=== PATIENT | female | born 1970 | race Caucasian/White ===

== ENCOUNTER 2017-02-10 02:42 | Inpatient (IN) | payer OTHER ==
[~2017-02-10] VITALS: Ht 160 cm; Wt 73.3 kg
[2017-02-10] VITALS (12 sets, daily range): BP systolic 113–163; BP diastolic 68–98
[~2017-02-10 02:42] MED LIST: ALPRAZOLAM2 MG PO; AMITRIPTYLINE H50 MG PO; AMITRIPTYLINE10 MG PO; AMITRIPTYLINE50 MG PO; AMOXICILLIN500 M2 PO; AMOXICILLIN500 MG PO; ATIVAN1 MG PO; AUGMENTIN 875 M1 TAB PO; BACTRIM DS 8001 TA1 PO; BACTRIM DS 8001 TAB PO; BACTROBAN OINT22 GM PO; BENADRYL50 MG PO; BENTYL10 MG PO; Bactrim Ds 8001 TAB PO; CIPRO250 MG PO; CIPRO500 MG PO; CIPROFLOXACIN500 MG PO; CLINDAMYCIN HC300 MG PO; CLINDAMYCIN150 MG PO; DESYREL100 MG PO; DOXEPIN25 MG PO; EFFEXOR XR37.5 MG PO; ELAVIL10 MG PO; ELMIRON100 MG PO; EMERON; EMIRON PO; FIORICET 325 MG1 TAB PO; GEODON60 MG PO; HYDROCODONE BIT1 T11 PO; LEVOFLOXACIN500 MG PO; LORCET 10/650 61 TA1 PO; LORTAB 10/500 51 TAB PO; LORTAB 500 MG-71 TAB PO; MACROBID100 M1 PO; MACRODANTIN100 MG PO; MAG PO; MOTRIN800 MG PO; NICODERM21 MG/24 H TD; NORCO 325 MG-101 TAB PO; NORCO 325 MG-51 TAB PO; PENICILLIN-VK500 MG PO; PERCOCET 325 MG1 TA2 PO; PERCOCET 325 MG1 TA3 PO; PERCOCET 325 MG1 TA5 PO; PERCOCET 325 MG1 TA6 PO; PERCOCET 325 MG1 TA7 PO; PERCOCET PO; PHENERGAN25 M1 PO; PHENERGAN25 MG RC; PREDNICOT20 MG PO; PREDNISONE20 M1 PO; PRILOSEC20 MG PO; PROTONIX40 MG PO; PYRIDIUM200 M1 PO; PYRIDIUM200 MG PO; Peridex 473 ML473 ML PO; ROBAXIN750 MG PO; SEROQUEL300 MG PO; TOPICAINE4% T; TRAMADOL HCL50 MG PO; TRAZADONE HYDR100 MG PO; VALIUM10 MG; VALIUM10 MG PO; VALIUM5 MG PO; VICODIN 5/500 505 MG PO; VICODIN 500 MG-1 TAB PO; VICODIN HP 6601 TAB PO; VICODIN PO; VOLTAREN50 M1 PO; WELLBUTRIN XL150 MG PO; XANAX XR2 MG PO; XANAX2 MG PO; ZIPRASIDONE HCL80 M1 PO; ZOFRAN ODT4 MG SL; ZOFRAN4 MG PO; ZYRTEC-D 5 MG-11 TE1 PO; ZYRTEC10 MG PO
[2017-02-10 03:16] LABS: BASO % 0.4 % (0.0-1.0); EOS # 0.2 10*3/uL (0.0-0.4); HEMATOCRIT 40.1 % (37.0-47.0); HEMOGLOBIN 13.3 g/dl (12.0-16.0); LYMPH # 3.1 10*3/uL (1.3-4.4); LYMPH % 37.9 % (27.0-41.0); MEAN CELL VOLUME 101.8 fl (81.0-99.0); MEAN CORPUSCULAR HGB 33.8 pg (27.0-31.0); MEAN CORPUSCULAR HGB CONC 33.2 g/dl (33.0-37.0); MONO # 0.5 10*3/uL (0.1-1.0); MONO % 5.6 % (3.0-9.0); NEUT # 4.3 10*3/uL (2.3-7.9); NEUT % 52.6 % (47.0-73.0); PLATELET COUNT AUTOMATED 520 10*3/uL (130-400); RED BLOOD COUNT 3.94 10*6/uL (4.10-5.10); RED CELL DISTRI WIDTH 14.4 % (0-14.5); WHITE BLOOD COUNT 8.1 10*3/uL (4.8-10.8)
[2017-02-10 03:29] LABS: C-REACTIVE PROTEIN 2.29 MG/DL (0-0.3)
[2017-02-10 03:34] LABS: ALBUMIN 3.3 gm/dl (3.1-4.5); ALKALINE PHOSPHATASE 134 U/L (45-117); BILIRUBIN, TOTAL 0.3 mg/dl (0.2-1.0); BUN 45 mg/dl (7-24); CARBON DIOXIDE 19 mmol/L (21-32); CHLORIDE 106 mmol/L (98-107); EST GLOM FILT AFRICAN AMERICAN 34 ml/min; GLUCOSE 111 mg/dL (65-99); MAGNESIUM 2.2 mg/dL (1.5-2.1); SGOT/AST 17 IU/L (3-35); SGPT/ALT 26 U/L (12-78); SODIUM 140 mmol/L (136-145); TOTAL PROTEIN 8.7 gm/dL (6.4-8.2)
[2017-02-10 03:35] LABS: TROPONIN I < 0.015 ng/ml (<0.045)
[2017-02-10 03:40] LABS: INTERNATIONAL NORM RATIO 1.1 (2.0-3.5); PROTHROMBIN TIME 11.4 SECONDS (9.0-12.4)
[2017-02-10 06:21] LABS: ALBUMIN 3.1 gm/dl (3.1-4.5); BILIRUBIN, TOTAL 0.5 mg/dl (0.2-1.0); FREE T4 1.25 ng/dl (0.76-1.46); PHOSPHOROUS 5.1 mg/dL (2.5-4.9); POTASSIUM 3.9 mmol/L (3.5-5.1); TOTAL PROTEIN 8.1 gm/dL (6.4-8.2)
[2017-02-10 06:26] LABS: THYROID STIM HORMONE (HS) 3.11 uIU/ml (0.358-4.75)
[2017-02-10 07:05] LABS: HEMOGLOBIN A1c 5.5 % (4.8-5.6)
[2017-02-10 07:43] LABS: VITAMIN D, 25-HYDROXY 12.2 ng/mL (30-100)
[2017-02-10 07:44] LABS: FOLIC ACID 8.67 ng/mL (>5.38)
[2017-02-10 18:38] LABS: BILIRUBIN NEGATIVE (NEGATIVE); BLOOD NEGATIVE (NEGATIVE); CLARITY SL CLOUDY (CLEAR); COLOR YELLOW (YELLOW); GLUCOSE NEGATIVE (NEGATIVE); KETONE NEGATIVE (NEGATIVE); LEUKO ESTERASE NEGATIVE (NEGATIVE); NITRITE NEGATIVE (NEGATIVE); PROTEIN NEGATIVE (NEGATIVE)
[2017-02-10 18:44] LABS: BACTERIA 4+; RBC 0-2 rbc/hpf (0-2); URINE REFLEX COMMENT YES (NO); WBC 0-2 wbc/hpf (0-5)
[2017-02-10 18:47] LABS: URINE AMPHETAMINES < 1000 (1000ng/ml); URINE BARBITURATES < 200 (200ng/ml); URINE COCAINE < 300 (300ng/ml)
== END 2017-02-10 20:16 | disposition left against medical advice (07) | DRG 682 ==
LOC: ED 02:42 → EDHOLD 04:18 → 5E 04:27
PROVIDERS: Emergency Medicine Emergency Medical Services; Hospitalist; Internal Medicine
DX: N17.0 Acute kidney failure with tubular necrosis (principal); J18.9 Pneumonia, unspecified organism; E44.0 Moderate protein-calorie malnutrition; E87.2 Acidosis; F33.9 Major depressive disorder, recurrent, unspecified; F17.210 Nicotine dependence, cigarettes, uncomplicated; R07.89 Other chest pain; K21.9 Gastro-esophageal reflux disease without esophagitis; F41.1 Generalized anxiety disorder; Z53.21 Procedure and treatment not carried out due to patient leaving prior to being seen by health care provider; K27.9 Peptic ulcer, site unspecified, unspecified as acute or chronic, without hemorrhage or perforation; G89.4 Chronic pain syndrome; N30.11 Interstitial cystitis (chronic) with hematuria; E55.9 Vitamin D deficiency, unspecified; Z90.49 Acquired absence of other specified parts of digestive tract; Z90.710 Acquired absence of both cervix and uterus; Z90.5 Acquired absence of kidney; Z82.49 Family history of ischemic heart disease and other diseases of the circulatory system; Z88.6 Allergy status to analgesic agent; Z88.8 Allergy status to other drugs, medicaments and biological substances; Z91.041 Radiographic dye allergy status; Z79.899 Other long term (current) drug therapy; Z68.28 Body mass index [BMI] 28.0-28.9, adult

== ENCOUNTER 2017-02-17 16:16 | Emergency (ER) | payer OTHER ==
[~2017-02-17] VITALS: Ht 160 cm; Wt 69.9 kg
[2017-02-17 16:26] VITALS: BP 130/90
[2017-02-17 17:01] LABS: BASO % 0.4 % (0.0-1.0); EOS # 0.2 10*3/uL (0.0-0.4); EOS % 3.2 % (1.0-4.0); HEMATOCRIT 38.4 % (37.0-47.0); HEMOGLOBIN 12.9 g/dl (12.0-16.0); LYMPH % 43.6 % (27.0-41.0); MEAN CELL VOLUME 101.6 fl (81.0-99.0); MEAN CORPUSCULAR HGB 34.1 pg (27.0-31.0); MEAN CORPUSCULAR HGB CONC 33.6 g/dl (33.0-37.0); MEAN PLATELET VOLUME 11.2 fl (9.6-12.3); MONO # 0.4 10*3/uL (0.1-1.0); MONO % 5.7 % (3.0-9.0); NEUT # 3.3 10*3/uL (2.3-7.9); NEUT % 46.8 % (47.0-73.0); PLATELET COUNT AUTOMATED 368 10*3/uL (130-400); RED BLOOD COUNT 3.78 10*6/uL (4.10-5.10); RED CELL DISTRI WIDTH 14.4 % (0-14.5)
[2017-02-17 17:15] LABS: ALBUMIN 3.5 gm/dl (3.1-4.5); BILIRUBIN, TOTAL 0.3 mg/dl (0.2-1.0); MAGNESIUM 1.8 mg/dL (1.5-2.1); POTASSIUM 4.2 mmol/L (3.5-5.1); TOTAL PROTEIN 7.9 gm/dL (6.4-8.2)
[2017-02-17 17:57] LABS: BILIRUBIN 1+ (NEGATIVE); BLOOD NEGATIVE (NEGATIVE); CLARITY SL CLOUDY (CLEAR); COLOR YELLOW (YELLOW); GLUCOSE NEGATIVE (NEGATIVE); KETONE NEGATIVE (NEGATIVE); LEUKO ESTERASE NEGATIVE (NEGATIVE); NITRITE NEGATIVE (NEGATIVE); PH 5.5 (5.0-9.0); PROTEIN TRACE (NEGATIVE); SPECIFIC GRAVITY >= 1.030 (1.005-1.030)
[2017-02-17 18:01] LABS: BACTERIA 4+; EPITHELIAL CELLS TNTC; RBC 0-2 rbc/hpf (0-2); URINE REFLEX COMMENT YES (NO)
== END 2017-02-17 18:23 | disposition home or self-care (01) ==
LOC: ED 16:16
PROVIDERS: Nurse Practitioner Family
DX: G89.29 Other chronic pain (principal); R10.30 Lower abdominal pain, unspecified; R03.0 Elevated blood-pressure reading, without diagnosis of hypertension; R11.2 Nausea with vomiting, unspecified; F17.200 Nicotine dependence, unspecified, uncomplicated; Z88.6 Allergy status to analgesic agent; Z91.041 Radiographic dye allergy status; Z88.8 Allergy status to other drugs, medicaments and biological substances; Z87.11 Personal history of peptic ulcer disease

== ENCOUNTER 2017-03-10 19:17 | Emergency (ER) | payer OTHER ==
[~2017-03-10] VITALS: Wt 55.8 kg
[2017-03-10 19:39] LABS: BASO % 0.4 % (0.0-1.0); EOS # 0.2 10*3/uL (0.0-0.4); EOS % 1.6 % (1.0-4.0); HEMATOCRIT 39.9 % (37.0-47.0); HEMOGLOBIN 13.6 g/dl (12.0-16.0); LYMPH # 2.6 10*3/uL (1.3-4.4); LYMPH % 25.3 % (27.0-41.0); MEAN CELL VOLUME 98.8 fl (81.0-99.0); MEAN CORPUSCULAR HGB 33.7 pg (27.0-31.0); MEAN CORPUSCULAR HGB CONC 34.1 g/dl (33.0-37.0); MEAN PLATELET VOLUME 11.5 fl (9.6-12.3); MONO # 0.7 10*3/uL (0.1-1.0); MONO % 6.9 % (3.0-9.0); NEUT # 6.8 10*3/uL (2.3-7.9); NEUT % 65.5 % (47.0-73.0); PLATELET COUNT AUTOMATED 341 10*3/uL (130-400); RED BLOOD COUNT 4.04 10*6/uL (4.10-5.10); WHITE BLOOD COUNT 10.3 10*3/uL (4.8-10.8)
[2017-03-10 19:52] LABS: C-REACTIVE PROTEIN 0.58 MG/DL (0-0.3); POTASSIUM 4.9 mmol/L (3.5-5.1)
[2017-03-10 19:54] VITALS: BP 146/96
[2017-03-10] MEDS ORDERED: ZOFRAN ODT4 MG SL (21:56)
[2017-03-10] MEDS ORDERED: PERCOCET 325 MG1 TA2 PO (21:56)
== END 2017-03-10 22:46 | disposition home or self-care (01) ==
LOC: ED 19:17
PROVIDERS: Emergency Medicine Emergency Medical Services
DX: N30.10 Interstitial cystitis (chronic) without hematuria (principal); R10.2 Pelvic and perineal pain; R11.10 Vomiting, unspecified; F17.210 Nicotine dependence, cigarettes, uncomplicated; Z90.49 Acquired absence of other specified parts of digestive tract; Z88.5 Allergy status to narcotic agent; Z88.6 Allergy status to analgesic agent; Z88.8 Allergy status to other drugs, medicaments and biological substances; Z91.041 Radiographic dye allergy status

== ENCOUNTER 2017-03-14 18:28 | Inpatient (IN) | payer OTHER ==
[~2017-03-14] VITALS: Ht 160 cm; Wt 73.7 kg
[2017-03-14 18:30] VITALS: BP 118/85
[2017-03-14 19:08] LABS: BILIRUBIN 1+ (NEGATIVE); BLOOD 1+ (NEGATIVE); CLARITY SL CLOUDY (CLEAR); COLOR YELLOW (YELLOW); GLUCOSE NEGATIVE (NEGATIVE); KETONE 3+ (NEGATIVE); LEUKO ESTERASE NEGATIVE (NEGATIVE); NITRITE POSITIVE (NEGATIVE); PROTEIN 2+ (NEGATIVE); SPECIFIC GRAVITY >= 1.030 (1.005-1.030)
[2017-03-14 19:25] LABS: BACTERIA 2+; EPITHELIAL CELLS TNTC; URINE REFLEX COMMENT YES (NO)
[2017-03-14 19:43] LABS: BASO % 0.2 % (0.0-1.0); EOS # 0.3 10*3/uL (0.0-0.4); EOS % 2.3 % (1.0-4.0); HEMOGLOBIN 13.9 g/dl (12.0-16.0); LYMPH # 2.7 10*3/uL (1.3-4.4); LYMPH % 22.2 % (27.0-41.0); MEAN CELL VOLUME 99.3 fl (81.0-99.0); MEAN CORPUSCULAR HGB 33.7 pg (27.0-31.0); MEAN CORPUSCULAR HGB CONC 33.9 g/dl (33.0-37.0); MEAN PLATELET VOLUME 11.3 fl (9.6-12.3); MONO # 0.6 10*3/uL (0.1-1.0); MONO % 5.2 % (3.0-9.0); NEUT # 8.5 10*3/uL (2.3-7.9); NEUT % 69.9 % (47.0-73.0); PLATELET COUNT AUTOMATED 298 10*3/uL (130-400); RED BLOOD COUNT 4.13 10*6/uL (4.10-5.10); RED CELL DISTRI WIDTH 14.5 % (0-14.5); WHITE BLOOD COUNT 12.1 10*3/uL (4.8-10.8)
[2017-03-14 20:00] LABS: ALBUMIN 4.1 gm/dl (3.1-4.5); BILIRUBIN, TOTAL 0.5 mg/dl (0.2-1.0); C-REACTIVE PROTEIN 0.81 MG/DL (0-0.3); MAGNESIUM 1.8 mg/dL (1.5-2.1); POTASSIUM 3.8 mmol/L (3.5-5.1); TOTAL PROTEIN 8.6 gm/dL (6.4-8.2)
[2017-03-14 21:15] VITALS: BP 128/94
[2017-03-14 23:18] VITALS: BP 118/78
[2017-03-15] VITALS: BP 118/78
[2017-03-15 04:00] VITALS: BP 144/68
[2017-03-15 04:42] LABS: BASO % 0.3 % (0.0-1.0); EOS # 0.3 10*3/uL (0.0-0.4); EOS % 4.4 % (1.0-4.0); HEMATOCRIT 36.5 % (37.0-47.0); MEAN CELL VOLUME 101.1 fl (81.0-99.0); MEAN CORPUSCULAR HGB 33.2 pg (27.0-31.0); MEAN CORPUSCULAR HGB CONC 32.9 g/dl (33.0-37.0); MEAN PLATELET VOLUME 11.2 fl (9.6-12.3); MONO # 0.7 10*3/uL (0.1-1.0); MONO % 8.6 % (3.0-9.0); NEUT # 3.7 10*3/uL (2.3-7.9); NEUT % 47.4 % (47.0-73.0); PLATELET COUNT AUTOMATED 246 10*3/uL (130-400); RED BLOOD COUNT 3.61 10*6/uL (4.10-5.10); RED CELL DISTRI WIDTH 14.4 % (0-14.5); WHITE BLOOD COUNT 7.8 10*3/uL (4.8-10.8)
[2017-03-15 04:55] LABS: PROTHROMBIN TIME 10.4 SECONDS (9.0-12.4)
[2017-03-15 04:59] LABS: ALBUMIN 3.4 gm/dl (3.1-4.5); ALKALINE PHOSPHATASE 127 U/L (45-117); BILIRUBIN, TOTAL 0.3 mg/dl (0.2-1.0); BUN 23 mg/dl (7-24); CARBON DIOXIDE 23 mmol/L (21-32); CHLORIDE 105 mmol/L (98-107); EST GLOM FILT AFRICAN AMERICAN > 60 ml/min; GLUCOSE 111 mg/dL (65-99); MAGNESIUM 1.7 mg/dL (1.5-2.1); POTASSIUM 3.7 mmol/L (3.5-5.1); SGOT/AST 31 IU/L (3-35); SGPT/ALT 54 U/L (12-78); SODIUM 138 mmol/L (136-145)
[2017-03-15 08:00] VITALS: BP 110/65
[2017-03-15 09:01] LABS: BILIRUBIN NEGATIVE (NEGATIVE); BLOOD TRACE-INTACT (NEGATIVE); CLARITY SL CLOUDY (CLEAR); COLOR YELLOW (YELLOW); GLUCOSE NEGATIVE (NEGATIVE); KETONE 2+ (NEGATIVE); LEUKO ESTERASE 1+ (NEGATIVE); NITRITE POSITIVE (NEGATIVE); PROTEIN 1+ (NEGATIVE); SPECIFIC GRAVITY 1.025 (1.005-1.030); UROBILINOGEN 0.2 E.U./dl (0.2-1.0)
[2017-03-15 09:17] LABS: BACTERIA TRACE; EPITHELIAL CELLS 16-20; MUCOUS 2+; URINE REFLEX COMMENT YES (NO); WBC 21-30 wbc/hpf (0-5)
[2017-03-15] MEDS ORDERED: D-1000 185 MG-11 TAB PO (09:56)
[2017-03-15 12:00] VITALS: BP 98/64
[2017-03-15] MEDS ORDERED: CIPRO500 MG PO (12:02)
[2017-03-15 16:00] VITALS: BP 147/90
[2017-03-15 20:00] VITALS: BP 117/76
[2017-03-16] VITALS: BP 144/68
[2017-03-16 08:00] VITALS: BP 96/56
[2017-03-16 09:16] VITALS: BP 110/70
[2017-03-16 12:00] VITALS: BP 132/88
[2017-03-16 16:00] VITALS: BP 152/87
[2017-03-16 20:00] VITALS: BP 169/90
[2017-03-17] VITALS: BP 160/90
[2017-03-17 08:00] VITALS: BP 145/69
[2017-03-17 12:00] VITALS: BP 114/75
[2017-03-17 16:00] VITALS: BP 132/97
[2017-03-17 20:00] VITALS: BP 152/91
[2017-03-18] VITALS: BP 139/90
[2017-03-18 07:04] LABS: BASO % 0.4 % (0.0-1.0); EOS # 0.5 10*3/uL (0.0-0.4); HEMATOCRIT 33.1 % (37.0-47.0); HEMOGLOBIN 10.7 g/dl (12.0-16.0); LYMPH # 2.7 10*3/uL (1.3-4.4); LYMPH % 39.9 % (27.0-41.0); MEAN CELL VOLUME 102.2 fl (81.0-99.0); MEAN CORPUSCULAR HGB CONC 32.3 g/dl (33.0-37.0); MEAN PLATELET VOLUME 12.2 fl (9.6-12.3); MONO # 0.5 10*3/uL (0.1-1.0); MONO % 6.9 % (3.0-9.0); NEUT # 3.1 10*3/uL (2.3-7.9); NEUT % 45.7 % (47.0-73.0); PLATELET COUNT AUTOMATED 203 10*3/uL (130-400); RED BLOOD COUNT 3.24 10*6/uL (4.10-5.10); RED CELL DISTRI WIDTH 14.2 % (0-14.5); WHITE BLOOD COUNT 6.7 10*3/uL (4.8-10.8)
[2017-03-18 07:20] LABS: ALBUMIN 2.9 gm/dl (3.1-4.5); ALKALINE PHOSPHATASE 95 U/L (45-117); BILIRUBIN, TOTAL 0.1 mg/dl (0.2-1.0); BUN 14 mg/dl (7-24); CARBON DIOXIDE 27 mmol/L (21-32); CHLORIDE 107 mmol/L (98-107); EST GLOM FILT AFRICAN AMERICAN > 60 ml/min; GLUCOSE 94 mg/dL (65-99); POTASSIUM 3.8 mmol/L (3.5-5.1); SGOT/AST 16 IU/L (3-35); SGPT/ALT 31 U/L (12-78); SODIUM 142 mmol/L (136-145); TOTAL PROTEIN 6.2 gm/dL (6.4-8.2)
[2017-03-18 08:00] VITALS: BP 146/90
[2017-03-18 12:00] VITALS: BP 108/58
[2017-03-18 16:00] VITALS: BP 150/82
[2017-03-18 20:00] VITALS: BP 150/95
[2017-03-19] VITALS: BP 155/88
[2017-03-19 06:13] LABS: BASO % 0.4 % (0.0-1.0); EOS # 0.4 10*3/uL (0.0-0.4); EOS % 6.4 % (1.0-4.0); HEMATOCRIT 28.7 % (37.0-47.0); HEMOGLOBIN 9.1 g/dl (12.0-16.0); LYMPH # 2.4 10*3/uL (1.3-4.4); LYMPH % 42.7 % (27.0-41.0); MEAN CELL VOLUME 103.2 fl (81.0-99.0); MEAN CORPUSCULAR HGB 32.7 pg (27.0-31.0); MEAN CORPUSCULAR HGB CONC 31.7 g/dl (33.0-37.0); MEAN PLATELET VOLUME 12.1 fl (9.6-12.3); MONO # 0.4 10*3/uL (0.1-1.0); MONO % 6.6 % (3.0-9.0); NEUT # 2.5 10*3/uL (2.3-7.9); NEUT % 43.7 % (47.0-73.0); PLATELET COUNT AUTOMATED 171 10*3/uL (130-400); RED BLOOD COUNT 2.78 10*6/uL (4.10-5.10); RED CELL DISTRI WIDTH 14.3 % (0-14.5); WHITE BLOOD COUNT 5.6 10*3/uL (4.8-10.8)
[2017-03-19 06:30] LABS: BUN 19 mg/dl (7-24); CARBON DIOXIDE 23 mmol/L (21-32); CHLORIDE 115 mmol/L (98-107); EST GLOM FILT AFRICAN AMERICAN > 60 ml/min; GLUCOSE 79 mg/dL (65-99); POTASSIUM 3.1 mmol/L (3.5-5.1); SODIUM 145 mmol/L (136-145)
[2017-03-19 08:00] VITALS: BP 154/89
[2017-03-19] MEDS ORDERED: PERCOCET 325 MG1 TA7 PO (11:50)
== END 2017-03-19 12:09 | disposition home or self-care (01) | DRG 871 ==
LOC: ED 18:28 → 4E 21:35 → EDHOLD 21:35 → 4E 22:43
PROVIDERS: Emergency Medicine; Family Medicine; Family Medicine Adult Medicine; Hospitalist
DX: A41.9 Sepsis, unspecified organism (principal); N17.0 Acute kidney failure with tubular necrosis; E87.1 Hypo-osmolality and hyponatremia; R65.20 Severe sepsis without septic shock; E86.0 Dehydration; F19.10 Other psychoactive substance abuse, uncomplicated; F17.210 Nicotine dependence, cigarettes, uncomplicated; R74.0 Nonspecific elevation of levels of transaminase and lactic acid dehydrogenase [LDH]; N30.11 Interstitial cystitis (chronic) with hematuria; F32.9 Major depressive disorder, single episode, unspecified; F41.1 Generalized anxiety disorder; B96.20 Unspecified Escherichia coli [E. coli] as the cause of diseases classified elsewhere; E55.9 Vitamin D deficiency, unspecified; G89.29 Other chronic pain; K27.9 Peptic ulcer, site unspecified, unspecified as acute or chronic, without hemorrhage or perforation; R70.0 Elevated erythrocyte sedimentation rate; Z79.899 Other long term (current) drug therapy; Z71.6 Tobacco abuse counseling; Z90.49 Acquired absence of other specified parts of digestive tract; Z88.6 Allergy status to analgesic agent; Z91.041 Radiographic dye allergy status; Z82.49 Family history of ischemic heart disease and other diseases of the circulatory system

== ENCOUNTER 2017-03-25 12:31 | Emergency (ER) | payer OTHER ==
[~2017-03-25] VITALS: Ht 1 cm; Wt 73.0 kg
[~2017-03-25 12:31] MED LIST changes: +D-1000 185 MG-11 TAB PO
[2017-03-25 12:48] VITALS: BP 119/89
[2017-03-25] MEDS ORDERED: HYDROCODONE BIT1 T11 PO (13:57)
[2017-03-25] MEDS ORDERED: LEVOFLOXACIN500 MG PO (13:57)
== END 2017-03-25 14:22 | disposition home or self-care (01) ==
LOC: ED 12:31
DX: S22.32XA Fracture of one rib, left side, initial encounter for closed fracture (principal); J90 Pleural effusion, not elsewhere classified; F17.200 Nicotine dependence, unspecified, uncomplicated; Z90.49 Acquired absence of other specified parts of digestive tract; Z88.5 Allergy status to narcotic agent; Z88.6 Allergy status to analgesic agent; Z91.041 Radiographic dye allergy status; W18.09XA Striking against other object with subsequent fall, initial encounter; Y93.89 Activity, other specified; Y92.9 Unspecified place or not applicable; Y99.9 Unspecified external cause status

== ENCOUNTER → 2017-04-02 | Outpatient (CLI) | payer OTHER ==
[2017-04-02 11:23] LABS: BILIRUBIN NEGATIVE (NEGATIVE); BLOOD TRACE-INTACT (NEGATIVE); CLARITY CLOUDY (CLEAR); COLOR YELLOW (YELLOW); GLUCOSE NEGATIVE (NEGATIVE); KETONE TRACE (NEGATIVE); LEUKO ESTERASE 1+ (NEGATIVE); NITRITE POSITIVE (NEGATIVE); PH 5.5 (5.0-9.0); PROTEIN 2+ (NEGATIVE); SPECIFIC GRAVITY >= 1.030 (1.005-1.030); UROBILINOGEN 0.2 E.U./dl (0.2-1.0)
[2017-04-02 11:29] LABS: BACTERIA 1+; WBC 41-50 wbc/hpf (0-5)
[2017-04-02 11:30] LABS: RBC 0-2 rbc/hpf (0-2)
[2017-04-02 11:32] LABS: BASO % 0.3 % (0.0-1.0); EOS # 0.4 10*3/uL (0.0-0.4); EOS % 3.8 % (1.0-4.0); HEMATOCRIT 42.2 % (37.0-47.0); LYMPH # 2.5 10*3/uL (1.3-4.4); LYMPH % 22.7 % (27.0-41.0); MEAN CELL VOLUME 101.4 fl (81.0-99.0); MEAN CORPUSCULAR HGB 33.7 pg (27.0-31.0); MEAN CORPUSCULAR HGB CONC 33.2 g/dl (33.0-37.0); MEAN PLATELET VOLUME 10.7 fl (9.6-12.3); MONO # 0.6 10*3/uL (0.1-1.0); MONO % 5.2 % (3.0-9.0); NEUT # 7.4 10*3/uL (2.3-7.9); NEUT % 67.6 % (47.0-73.0); PLATELET COUNT AUTOMATED 385 10*3/uL (130-400); RED BLOOD COUNT 4.16 10*6/uL (4.10-5.10); RED CELL DISTRI WIDTH 14.8 % (0-14.5); WHITE BLOOD COUNT 10.9 10*3/uL (4.8-10.8)
[2017-04-02 11:52] LABS: ALBUMIN 4.2 gm/dl (3.1-4.5); ALKALINE PHOSPHATASE 118 U/L (45-117); BILIRUBIN, TOTAL 0.5 mg/dl (0.2-1.0); BUN 23 mg/dl (7-24); CARBON DIOXIDE 17 mmol/L (21-32); CHLORIDE 109 mmol/L (98-107); EST GLOM FILT AFRICAN AMERICAN > 60 ml/min; GLUCOSE 94 mg/dL (65-99); POTASSIUM 4.5 mmol/L (3.5-5.1); SGOT/AST 25 IU/L (3-35); SGPT/ALT 30 U/L (12-78); SODIUM 139 mmol/L (136-145); TOTAL PROTEIN 8.6 gm/dL (6.4-8.2)
== END | disposition home or self-care (01) ==
LOC: US 00:01 → RESCLI 04:41
PROVIDERS: Internal Medicine
DX: Z09 Encounter for follow-up examination after completed treatment for conditions other than malignant neoplasm (principal); S22.32XD Fracture of one rib, left side, subsequent encounter for fracture with routine healing; R63.0 Anorexia; N30.10 Interstitial cystitis (chronic) without hematuria; N39.0 Urinary tract infection, site not specified; R10.11 Right upper quadrant pain; R10.31 Right lower quadrant pain; G89.29 Other chronic pain; G43.909 Migraine, unspecified, not intractable, without status migrainosus; G47.00 Insomnia, unspecified; F31.30 Bipolar disorder, current episode depressed, mild or moderate severity, unspecified; F41.9 Anxiety disorder, unspecified; E55.9 Vitamin D deficiency, unspecified; D53.9 Nutritional anemia, unspecified; D72.810 Lymphocytopenia; R79.89 Other specified abnormal findings of blood chemistry; R74.8 Abnormal levels of other serum enzymes; F32.9 Major depressive disorder, single episode, unspecified; Z71.6 Tobacco abuse counseling; Z72.0 Tobacco use; Z90.5 Acquired absence of kidney; Z88.6 Allergy status to analgesic agent; X58.XXXD Exposure to other specified factors, subsequent encounter

== ENCOUNTER → 2017-04-12 | Day surgery (SDC) | payer OTHER ==
[~2017-04-12] VITALS: Ht 160 cm; Wt 73.0 kg
[~2017-04-12] MED LIST changes: +BACTRIM 400-801 EACH PO; +EFFEXOR XR37.5 M1 PO; +OMEPRAZOLE20 M2 PO
--- NOTE | ~2017-04-12 | O ---
[place], [place] OPERATIVE NOTE NAME: SEMAJ ROMERO UNIT #: [id number] ROOM: DOCTOR: SANIA LOCKE MD BIRTHDATE: [birth year] DOS: 04/12/2017 GASTROENDOSCOPIC REPORT The patient has presented with abdominal pain and cramp. PROCEDURE: Today's procedure part of investigation is colonoscopy. PREMEDICATIONS: Versed and Diprivan. SCOPE: Olympus folding colonoscope 10L video. REPORT: After putting the patient in the left lateral position and after application of lubricant to the scope, the scope was introduced. Thereafter, under direct visualization, I advanced through the length of colon with some difficulty secondary to tortuosity. Otherwise, base of the cecum explored, appendiceal orifice identified, and ileocecal valve was defined and photographed. Air was suctioned out. The patient was extubated, tolerated the procedure well. IMPRESSION: Mildly tortuous colon, otherwise normal colonoscopic examination. PLAN AND DISCUSSION: This patient has an element of irritable bowel syndrome, posttraumatic syndrome, anxiety, bipolar. She is on multi-psychedelic medications. I am going to try to avoid additional other medication except omeprazole for upper GI tract and we will see if she would respond to the management. Diet to become high fiber diet. ACTIVITY: Ad essence. FOLLOWUP: As outpatient. Thank you very much indeed. [place], [place] OPERATIVE NOTE NAME: SEMAJ ROMERO UNIT #: [id number] ROOM: DOCTOR: SANIA LOCKE MD BIRTHDATE: [birth year] SANIA LOCKE MD CM:OPRECORD:OPERATIVE NOTE 1215 1423 SILVIA LOCKE MD 04/13/17 0748 interface
--- NOTE | ~2017-04-12 | O ---
[place], [place] OPERATIVE NOTE NAME: SEMAJ ROMERO UNIT #: [id number] ROOM: DOCTOR: CORNELIA SIM,SANIA BIRTHDATE: [birth year] DOS: 04/12/2017 GASTROENDOSCOPIC REPORT. The patient has presented with multiple medical issues, among which was history of esophageal ulcer, history of dyspepsia, change in bowel habit, and abdominal pain. The patient on medications. The patient with abdominal cramps. ALLERGIES: CODEINE, VISTARIL, TORADOL, and IVP DYE. FAMILY HISTORY: Noncontributory. PAST SURGICAL HISTORY: Right nephrectomy for renal CA, unknown detail; ; cholecystectomy; urethral stent. MEDICATIONS: Include Xanax, Valium, Bactrim. PAST MEDICAL HISTORY: The patient under treatment for anxiety, bipolar, post-traumatic syndrome. SOCIAL HISTORY: Smoker, nonalcohol consumer. PROCEDURE: Todays' procedure part of investigation is colonoscopy, panendoscopy. PREMEDICATION: Versed and Diprivan. SCOPE: Olympus folding gastroscope Q10 video. REPORT: After putting the patient in the left lateral position and after application of lubricant to the scope, the scope was introduced. Thereafter, under direct visualization, I advanced through the length of esophagus without difficulty. Hiatal hernia was noticed. Small gastric pouch was entered. Gastritis seen. Linear antral ulceration and erosions were identified. Duodenal bulb, second and third part within normal limits. Antral biopsy obtained. The patient was extubated, tolerated procedure well. IMPRESSION: Gastritis, gastric erosions, hiatal hernia, linear antral ulcerations. PLAN AND DISCUSSION: We made sure that this patient stays on omeprazole 20 mg 1 daily at least for the next 6 months. The patient advised to abstain from smoking. We will proceed with colonoscopic assessment. [place], [place] OPERATIVE NOTE NAME: SEMAJ ROMERO UNIT #: [id number] ROOM: DOCTOR: SANIA LOCKE MD BIRTHDATE: [birth year] SANIA LOCKE MD CM:OPRECORD:OPERATIVE NOTE 1215 1413 SANIA LOCKE MD 04/12/17 1413 interface
[2017-04-12 10:00] VITALS: BP 131/81
[2017-04-12 12:05] VITALS: BP 125/96
[2017-04-12 12:20] VITALS: BP 154/72
[2017-04-12 12:30] VITALS: BP 155/74
== END | disposition home or self-care (01) ==
LOC: SDC 04-08 14:00
DX: K63.89 Other specified diseases of intestine (principal); K29.50 Unspecified chronic gastritis without bleeding; K44.9 Diaphragmatic hernia without obstruction or gangrene; K25.9 Gastric ulcer, unspecified as acute or chronic, without hemorrhage or perforation; Z90.49 Acquired absence of other specified parts of digestive tract; Z98.890 Other specified postprocedural states; Z90.5 Acquired absence of kidney; Z88.8 Allergy status to other drugs, medicaments and biological substances; Z79.899 Other long term (current) drug therapy; F41.9 Anxiety disorder, unspecified; F31.9 Bipolar disorder, unspecified; F17.210 Nicotine dependence, cigarettes, uncomplicated; Z90.710 Acquired absence of both cervix and uterus

== ENCOUNTER 2017-04-24 15:38 | Emergency (ER) | payer OTHER ==
[~2017-04-24] VITALS: Ht 160 cm; Wt 72.6 kg
[2017-04-24 15:53] LABS: BILIRUBIN NEGATIVE (NEGATIVE); BLOOD NEGATIVE (NEGATIVE); CLARITY SL CLOUDY (CLEAR); COLOR YELLOW (YELLOW); GLUCOSE NEGATIVE (NEGATIVE); KETONE NEGATIVE (NEGATIVE); LEUKO ESTERASE NEGATIVE (NEGATIVE); NITRITE NEGATIVE (NEGATIVE); PH 5.5 (5.0-9.0); UROBILINOGEN 0.2 E.U./dl (0.2-1.0)
[2017-04-24 15:58] LABS: BACTERIA 4+; EPITHELIAL CELLS 20-25; RBC 0-2 rbc/hpf (0-2)
[2017-04-24 17:08] LABS: BASO % 0.3 % (0.0-1.0); EOS # 0.2 10*3/uL (0.0-0.4); EOS % 2.4 % (1.0-4.0); HEMATOCRIT 37.8 % (37.0-47.0); HEMOGLOBIN 12.4 g/dl (12.0-16.0); LYMPH # 2.7 10*3/uL (1.3-4.4); LYMPH % 35.8 % (27.0-41.0); MEAN CELL VOLUME 101.6 fl (81.0-99.0); MEAN CORPUSCULAR HGB 33.3 pg (27.0-31.0); MEAN CORPUSCULAR HGB CONC 32.8 g/dl (33.0-37.0); MONO # 0.4 10*3/uL (0.1-1.0); MONO % 5.7 % (3.0-9.0); NEUT # 4.1 10*3/uL (2.3-7.9); NEUT % 55.5 % (47.0-73.0); PLATELET COUNT AUTOMATED 297 10*3/uL (130-400); RED BLOOD COUNT 3.72 10*6/uL (4.10-5.10); RED CELL DISTRI WIDTH 15.8 % (0-14.5); WHITE BLOOD COUNT 7.4 10*3/uL (4.8-10.8)
[2017-04-24 17:23] LABS: ALBUMIN 3.6 gm/dl (3.1-4.5); ALKALINE PHOSPHATASE 150 U/L (45-117); BUN 24 mg/dl (7-24); CHLORIDE 113 mmol/L (98-107); CREATININE 1.03 mg/dL (0.55-1.02); POTASSIUM 5.1 mmol/L (3.5-5.1); SGOT/AST 31 IU/L (3-35); SGPT/ALT 130 U/L (12-78); SODIUM 140 mmol/L (136-145); TOTAL PROTEIN 7.7 gm/dL (6.4-8.2)
[2017-04-24 18:27] VITALS: BP 148/92
== END 2017-04-24 19:25 | disposition home or self-care (01) ==
LOC: ED 15:38
PROVIDERS: Emergency Medicine; Physician Assistant
DX: R10.30 Lower abdominal pain, unspecified (principal); R30.0 Dysuria; F17.200 Nicotine dependence, unspecified, uncomplicated; Z88.6 Allergy status to analgesic agent; Z88.8 Allergy status to other drugs, medicaments and biological substances; Z91.041 Radiographic dye allergy status; Z79.899 Other long term (current) drug therapy

== ENCOUNTER 2017-05-08 21:42 | Emergency (ER) | payer OTHER ==
[~2017-05-08] VITALS: Ht 160 cm; Wt 68.0 kg
[2017-05-08 22:19] VITALS: BP 101/70
[2017-05-08] MEDS ORDERED: KETOROLAC10 MG PO (22:57)
[2017-05-08] MEDS ORDERED: CLINDAMYCIN HC300 MG PO (22:57)
== END 2017-05-08 23:26 | disposition home or self-care (01) ==
LOC: ED 21:42
DX: K04.01 Reversible pulpitis (principal); K02.9 Dental caries, unspecified; F17.200 Nicotine dependence, unspecified, uncomplicated; Z88.6 Allergy status to analgesic agent; Z91.041 Radiographic dye allergy status; Z88.8 Allergy status to other drugs, medicaments and biological substances; Z79.899 Other long term (current) drug therapy

== ENCOUNTER → 2017-05-10 | Outpatient (CLI) | payer OTHER ==
[~2017-05-10] MED LIST changes: +AMITRIPTYLINE25 MG PO; +BACLOFEN 10 MG TABLE PO; +BUPROPION HCL300 MG PO; +DIAZEPAM10 M1 PO; +DOXEPIN HCL25 MG PO; +KETOROLAC10 MG PO; +LEVOFLOXACIN750 M2 PO; +NEURONTIN300 MG PO; +ONDANSETRON HYDR4 MG PO; +PERCOCET 10-321 EACH PO; +PHENERGAN25 M3 PO; +PROAIR HFA8.5 GM INH; +SEPTDS PO; +TRAZODONE50 MG PO; +VENLAFAXINE HY150 M2 PO; +VISTARIL25 MG PO
== END | disposition home or self-care (01) ==
LOC: LAB 02:08 → US 02:08
DX: K76.0 Fatty (change of) liver, not elsewhere classified (principal); R74.0 Nonspecific elevation of levels of transaminase and lactic acid dehydrogenase [LDH]; G25.81 Restless legs syndrome; Z90.49 Acquired absence of other specified parts of digestive tract; Z90.5 Acquired absence of kidney

== ENCOUNTER 2017-05-11 15:56 | Inpatient (IN) | payer OTHER ==
[~2017-05-11] VITALS: Ht 160 cm; Wt 77.1 kg
--- NOTE | ~2017-05-11 | EKG ---
[place], [place] ELECTROCARDIOGRAM REPORT NAME: SEMAJ ROMERO UNIT #: [id number] ROOM: 427 DOCTOR: MALLORY SIM,BARBER BIRTHDATE: [birth year] DOS: 05/11/2017 TIME: 1558 hours. IMPRESSION: 1. Sinus rhythm, rate 100. 2. Incomplete right bundle-branch block. 3. Nonspecific ST-T changes. BARBER TEJADA MD CM:EKGRPT:ELECTROCARDIOGRAM REPORT 1238 1250 BARBER TEJADA MD
[~2017-05-11 15:56] MED LIST changes: -AMITRIPTYLINE25 MG PO; -BACLOFEN 10 MG TABLE PO; -BUPROPION HCL300 MG PO; -DIAZEPAM10 M1 PO; -DOXEPIN HCL25 MG PO; -LEVOFLOXACIN750 M2 PO; -NEURONTIN300 MG PO; -ONDANSETRON HYDR4 MG PO; -PERCOCET 10-321 EACH PO; -PHENERGAN25 M3 PO; -PROAIR HFA8.5 GM INH; -SEPTDS PO; -TRAZODONE50 MG PO; -VENLAFAXINE HY150 M2 PO; -VISTARIL25 MG PO
[2017-05-11] MEDS ORDERED: NEURONTIN300 MG PO (16:05)
[2017-05-11] MEDS ORDERED: AMITRIPTYLINE25 MG PO (16:05)
[2017-05-11] MEDS ORDERED: VISTARIL25 MG PO (16:05)
[2017-05-11 16:06] VITALS: BP 130/80
[2017-05-11] MEDS ORDERED: ELMIRON100 MG PO (16:06)
--- NOTE | 2017-05-11 16:26 | NUR ---
PATIENT GIVEN A COURSE OF NITROGLYCERIN... 3 SUBLINQUAL TABS... BP IS 130/80 PRIOR BP 122/72 AFTER
[2017-05-11 16:27] VITALS: BP 122/78
--- NOTE | 2017-05-11 16:30 | NUR ---
PATIENT KNOWN TO HAVE HORRIBLE VENOUS ACCESS... PATIENT USED TO HAVE A PORT... "THEY ARE TALKING ABOUT PUTTING IN ANOTHER PORT OR A PICC LINE..." PATIENT HAD GOOD APPEARING VEINS AND ACCESS IN HER FOOT... "THEY USE MY FOOT ALL THE TIME" STATES PATIENT...
[2017-05-11 16:53] LABS: ALBUMIN 3.4 gm/dl (3.1-4.5); ALKALINE PHOSPHATASE 112 U/L (45-117); BUN 39 mg/dl (7-24); CHLORIDE 109 mmol/L (98-107); CREATININE 1.75 mg/dL (0.55-1.02); POTASSIUM 4.7 mmol/L (3.5-5.1); SGOT/AST 33 IU/L (3-35); SGPT/ALT 47 U/L (12-78); SODIUM 138 mmol/L (136-145); TOTAL PROTEIN 7.1 gm/dL (6.4-8.2)
[2017-05-11 16:54] LABS: TROPONIN I < 0.015 ng/ml (<0.045)
[2017-05-11 16:55] VITALS: BP 124/75
[2017-05-11 16:57] LABS: BASO % 0.4 % (0.0-1.0); EOS # 0.3 10*3/uL (0.0-0.4); EOS % 3.7 % (1.0-4.0); HEMATOCRIT 36.2 % (37.0-47.0); HEMOGLOBIN 12.1 g/dl (12.0-16.0); LYMPH # 2.8 10*3/uL (1.3-4.4); LYMPH % 38.5 % (27.0-41.0); MEAN CELL VOLUME 101.4 fl (81.0-99.0); MEAN CORPUSCULAR HGB 33.9 pg (27.0-31.0); MEAN CORPUSCULAR HGB CONC 33.4 g/dl (33.0-37.0); MEAN PLATELET VOLUME 11.2 fl (9.6-12.3); MONO # 0.5 10*3/uL (0.1-1.0); MONO % 6.3 % (3.0-9.0); NEUT # 3.7 10*3/uL (2.3-7.9); NEUT % 50.8 % (47.0-73.0); PLATELET COUNT AUTOMATED 221 10*3/uL (130-400); RED BLOOD COUNT 3.57 10*6/uL (4.10-5.10); WHITE BLOOD COUNT 7.3 10*3/uL (4.8-10.8)
--- NOTE | 2017-05-11 17:04 | NUR ---
PATIENT'S FAMILY CONTINUE TO COME IN AND OUT OF ROOM... DOOR WAS SHUT TO ENCOURAGE THEM TO STAY IN ROOM... PATIENT THEN RANG CALL FELDMAN... PATIENT STATES SHE WAS IN "SEVERE PAIN..." I ADVISED HER THE DOCTOR WOULD BE IN...
[2017-05-11 17:08] LABS: ACT PARTIAL THROMBO TIME 24.7 SECONDS (20.8-31.5)
--- NOTE | 2017-05-11 18:10 | NUR ---
A 47, admitted to , under the services of ZANA Kraft DO with a diagnosis of CHEST PAIN. Chief complaint is CHEST PAIN. Patient arrived via bed from ER. Monitor applied. Initial assessment completed. Vital signs taken and recorded. ZANA KRAFT DO notified of admission to the unit. Orders received. See assessment for past medical history, medications and allergies. Patient and/or family oriented to unit. [facility] visitation policy reviewed. Clothing/patient valuable form completed. CARIN MARES
[2017-05-11 18:14] VITALS: BP 113/72
[2017-05-11] MEDS ORDERED: DOXEPIN HCL25 MG PO (19:43)
[2017-05-11] MEDS ORDERED: DIAZEPAM10 M1 PO (19:43)
[2017-05-11 20:00] VITALS: BP 106/76
[2017-05-12] VITALS: BP 116/82
--- NOTE | 2017-05-12 00:01 | NUR ---
PT C/O UNABLE TO URINATE SINCE 1700 YESTERDAY. BLADDER SCANNED FOR 475. DR. SCHAEFER NOTIFIED AND N.O. RCVD TO STRAIGHT CATH.
--- NOTE | 2017-05-12 00:30 | NUR ---
PT ADVISED OF DR. GRANDE TO STRAIGHT CATH. PT WANTING TO DRINK FLUIDS AND WAIT AWHILE. GINGERALE AND JUICES AND SNACKS GIVEN. WILL CONT. TO MONITOR.
--- NOTE | 2017-05-12 01:30 | NUR ---
PT STATES THAT PAIN MED WAS EFFECTIVE. PT SITTING UP IN BED READING AND WRITING. PT STATES SHE STILL HAS NOT VOIDED.
--- NOTE | 2017-05-12 02:00 | NUR ---
PT ST CATHED FOR 600ML DARK CLOUDY YELLOW URINE. PT TOLERATED PROCEDURE WELL. PROCEDURE PERFORMED BY RICHI JIMÉNEZ RN.
--- NOTE | 2017-05-12 02:30 | NUR ---
PT REMAINS AWAKE IN BED. MULTIPLE SNACKS AND DRINKS GIVEN TO PT PER HER REQUEST. PT STATES THAT MORPHINE IVP WAS EFFECTIVE FOR PAIN RELIEF. ENCOURAGED PT TO REST. PT STATES THAT SHE TRIED AND IS UNABLE TO DO SO.
--- NOTE | 2017-05-12 04:49 | NUR ---
24 HR chart check completed.
[2017-05-12 06:07] LABS: BASO % 0.2 % (0.0-1.0); EOS # 0.1 10*3/uL (0.0-0.4); EOS % 2.7 % (1.0-4.0); HEMATOCRIT 35.5 % (37.0-47.0); HEMOGLOBIN 11.3 g/dl (12.0-16.0); LYMPH # 2.5 10*3/uL (1.3-4.4); MEAN CELL VOLUME 104.1 fl (81.0-99.0); MEAN CORPUSCULAR HGB 33.1 pg (27.0-31.0); MEAN CORPUSCULAR HGB CONC 31.8 g/dl (33.0-37.0); MEAN PLATELET VOLUME 11.4 fl (9.6-12.3); MONO # 0.4 10*3/uL (0.1-1.0); NEUT # 2.1 10*3/uL (2.3-7.9); NEUT % 40.9 % (47.0-73.0); PLATELET COUNT AUTOMATED 201 10*3/uL (130-400); RED BLOOD COUNT 3.41 10*6/uL (4.10-5.10); RED CELL DISTRI WIDTH 15.3 % (0-14.5); WHITE BLOOD COUNT 5.1 10*3/uL (4.8-10.8)
[2017-05-12 06:38] LABS: POTASSIUM 4.1 mmol/L (3.5-5.1)
[2017-05-12 06:52] LABS: ACT PARTIAL THROMBO TIME 28.5 SECONDS (20.8-31.5)
[2017-05-12 06:53] LABS: CREATININE 1.52 mg/dL (0.55-1.02); FREE T4 0.81 ng/dl (0.76-1.46); MAGNESIUM 1.9 mg/dL (1.5-2.1); THYROID STIM HORMONE (HS) 2.65 uIU/ml (0.358-4.75)
[2017-05-12 06:55] LABS: VITAMIN D, 25-HYDROXY 12.3 ng/mL (30-100)
--- NOTE | 2017-05-12 07:00 | NUR ---
PT AWAKE IN BED. PT STATES THAT PAIN MED WAS SOMEWHAT EFFECTIVE FOR PAIN RELIEF. ENCOURAGED PT TO GET SOME SLEEP. PT STATES THAT SHE IS UNABLE TO LIE FLAT. ADVISED PT THAT SHE CAN SLEEP WITH HOB ELEVATED. PT STATES SHE WILL TRY.
[2017-05-12 08:00] VITALS: BP 103/74
--- NOTE | 2017-05-12 08:04 | NUR ---
CHART CHECK COMPLETE
--- NOTE | 2017-05-12 08:52 | NUR ---
PERCOSET 7.5 MG GIVEN FOR C/O GENERALIZED PAIN,05/28.
--- NOTE | 2017-05-12 11:20 | NUR ---
MORPHINE 2MG GIVEN FOR C/O PGENERALIZED BACK PAIN,05/28.
[2017-05-12 12:00] VITALS: BP 102/71
--- NOTE | 2017-05-12 15:10 | NUR ---
PT HAD NO OUTPUT FOR 8 HRS WHEN I SPOKE TO HER SHE C/O DYSURIA AND HESITANCY. PT STATED "she was unable to pee". I CALLED DR EM AND ORDER RECIEVED FOR UA/UC. PT HAS HX OF E.COLI UTI"S. BLADDER SCANNED PT FOR 354ML, STRAIGHT CATHED PT PER PHYSICIAN'S ORDER.450 ML OUT WITH STRAIGHT CATH. UA/CS SENT. SPOKE WITH DR HOFFMANN REGARDING PLAN OF CARE.
[2017-05-12 16:00] VITALS: BP 112/76
[2017-05-12 16:11] LABS: BILIRUBIN NEGATIVE (NEGATIVE); BLOOD NEGATIVE (NEGATIVE); CLARITY CLEAR (CLEAR); COLOR YELLOW (YELLOW); GLUCOSE NEGATIVE (NEGATIVE); KETONE NEGATIVE (NEGATIVE); LEUKO ESTERASE NEGATIVE (NEGATIVE); NITRITE NEGATIVE (NEGATIVE); PH 5.5 (5.0-9.0); SPECIFIC GRAVITY 1.025 (1.005-1.030); UROBILINOGEN 0.2 E.U./dl (0.2-1.0)
[2017-05-12 16:30] LABS: BACTERIA TRACE; RBC 0-2 rbc/hpf (0-2); WBC 0-2 wbc/hpf (0-5); YEAST 1+
--- NOTE | 2017-05-12 16:46 | NUR ---
MORPHINE 2 MG GIVEN FOR C/O GENERALIZED TORSO/BACK PAIN 04/28.
[2017-05-12 20:00] VITALS: BP 120/77
--- NOTE | 2017-05-12 21:48 | NUR ---
PRN PAIN MED EFFECTIVE. PT NO LONGER TEARFUL. PT FALLING ASLEEP SITTING UP IN BED WHILE THIS NURSE PREPARES MEDS. F/C PATENT AND DRAINING CLEAR LIGHT YELLOW URINE. PT STATES SHE HAS RELIEF WITH F/C. WILL CONT. TO MONITOR.
[2017-05-13] VITALS: BP 120/80
--- NOTE | 2017-05-13 01:21 | NUR ---
24 HR chart check completed.
[2017-05-13 08:00] VITALS: BP 113/78
[2017-05-13 12:00] VITALS: BP 134/90
--- NOTE | 2017-05-13 19:30 | NUR ---
Patient signed out AMA. Patient encouraged to stay and advised of possible consequences of premature discharge. Physician and oil field pipeline supervisor DALY MAYO notified. Patient instructed what to do regarding care post-departure from the hospital; emergency phone numbers provided. Patent was accompanied by SELF. ELADIO WAKEFIELD
== END 2017-05-13 19:30 | disposition left against medical advice (07) | DRG 193 ==
LOC: ED 15:56 → EDHOLD 17:22 → 4E 17:22
PROVIDERS: Emergency Medicine; Internal Medicine; ADMIT Internal Medicine
DX: J18.1 Lobar pneumonia, unspecified organism (principal); N17.0 Acute kidney failure with tubular necrosis; E87.8 Other disorders of electrolyte and fluid balance, not elsewhere classified; R16.0 Hepatomegaly, not elsewhere classified; N30.11 Interstitial cystitis (chronic) with hematuria; F32.9 Major depressive disorder, single episode, unspecified; G89.4 Chronic pain syndrome; F17.210 Nicotine dependence, cigarettes, uncomplicated; E55.9 Vitamin D deficiency, unspecified; N18.9 Chronic kidney disease, unspecified; D75.89 Other specified diseases of blood and blood-forming organs; F41.1 Generalized anxiety disorder; Z87.81 Personal history of (healed) traumatic fracture; Z87.11 Personal history of peptic ulcer disease; Z90.49 Acquired absence of other specified parts of digestive tract; Z90.710 Acquired absence of both cervix and uterus; Z90.5 Acquired absence of kidney; Z88.5 Allergy status to narcotic agent; Z88.8 Allergy status to other drugs, medicaments and biological substances; Z88.6 Allergy status to analgesic agent; Z91.041 Radiographic dye allergy status; Z86.718 Personal history of other venous thrombosis and embolism; Z71.6 Tobacco abuse counseling; Z82.49 Family history of ischemic heart disease and other diseases of the circulatory system

== ENCOUNTER → 2017-05-11 | Outpatient (CLI) | payer OTHER ==
[2017-05-14 08:02] LABS: IRON 57 ug/dL (50-170); TOTAL IRON BINDING CAPACITY 293 ug/dl (250-450)
== END | disposition home or self-care (01) ==
LOC: LAB 07:39
PROVIDERS: Internal Medicine
DX: G25.81 Restless legs syndrome (principal); R74.0 Nonspecific elevation of levels of transaminase and lactic acid dehydrogenase [LDH]; R10.11 Right upper quadrant pain

== ENCOUNTER → 2017-05-14 | Outpatient (CLI) | payer OTHER ==
[~2017-05-14] MED LIST changes: +AMITRIPTYLINE25 MG PO; +BACLOFEN 10 MG TABLE PO; +BUPROPION HCL300 MG PO; +DIAZEPAM10 M1 PO; +DOXEPIN HCL25 MG PO; +LEVAQUIN750 M1 PO; +LEVOFLOXACIN750 M2 PO; +NEURONTIN300 MG PO; +NORVASC2.5 MG PO; +ONDANSETRON HYDR4 MG PO; +PERCOCET 10-321 EACH PO; +PHENERGAN25 M3 PO; +PROAIR HFA8.5 GM INH; +SEPTDS PO; +TRAZODONE50 MG PO; +VENLAFAXINE HY150 M2 PO; +VISTARIL25 MG PO
== END | disposition home or self-care (01) ==
LOC: RESCLI 10:05
DX: J18.1 Lobar pneumonia, unspecified organism (principal); R06.02 Shortness of breath; G47.00 Insomnia, unspecified; R60.1 Generalized edema; G89.29 Other chronic pain; K31.89 Other diseases of stomach and duodenum; R11.0 Nausea; F41.9 Anxiety disorder, unspecified; G43.909 Migraine, unspecified, not intractable, without status migrainosus; N30.10 Interstitial cystitis (chronic) without hematuria; E55.9 Vitamin D deficiency, unspecified; F31.30 Bipolar disorder, current episode depressed, mild or moderate severity, unspecified; Z72.0 Tobacco use; Z71.6 Tobacco abuse counseling

== ENCOUNTER 2017-05-15 09:15 | Inpatient (IN) | payer OTHER ==
[2017-05-15] VITALS (13 sets, daily range): BP systolic 95–158; BP diastolic 49–124
[~2017-05-15] VITALS: Ht 160 cm; Wt 80.7 kg
--- NOTE | ~2017-05-15 | PR ---
[place], [place] PROGRESS NOTE NAME: SEMAJ ROMERO UNIT #: [id number] ROOM: [place] [address] DOCTOR: CRISSY STRATTON MD BIRTHDATE: [birth year] DOS: 05/17/2017 SUBJECTIVE: She has been liberated from mechanical ventilator yesterday, noted much more awake and alert this morning, cooperative with examination without any signs of agitation. She has not been noted any seizure activity or others. Electrocardiogram for this patient was noted normal. There was no cardiac arrhythmia for the patient or other abnormalities noted at this time. OBJECTIVE: VITAL SIGNS: For the patient which has been recorded showed blood pressure of 143/89. The respiratory rate 16, heart rate 80 and normal QRS interval. The temperature was normal. HEENT: Showed no new change. NECK: Supple. CARDIOVASCULAR: S1, S2 audible. LUNGS: Noted completely clear. ABDOMEN: Soft, nontender. Bowel sounds present. EXTREMITIES: Show no edema, clubbing, or cyanosis. SKIN: Showed no lesions. LABORATORY DATA: CBC this morning was noted as hemoglobin 9.9, hematocrit 30.3, WBC count normal, platelet count normal. CMP of the patient noted normal BUN and creatinine. The potassium noted at 3.8. The albumin noted at 2.7. IMPRESSION: 1. The patient with polysubstance overdose with amitriptyline, muscle relaxants and other medication with change in mental status, resolved. 2. Small area of left atelectasis of the left lower lobe was also noted for this patient. There was no clinical evidence of pneumonia at this time. PLAN OF TREATMENT: Discontinue all the antibiotics at this time. Continuation of the patient therapy, plan of management. Usual care. Supportive care. Monitor mental status. Psychiatric consultation was noted in progress. The patient could be transferred to psychiatric facility if necessary. [place], [place] PROGRESS NOTE NAME: SEMAJ ROMERO UNIT #: [id number] ROOM: [place] [address] DOCTOR: CRISSY STRATTON MD BIRTHDATE: [birth year] CRISSY GILLETTE MD CM:NATALEE Pérez: 05/17/17 0723 0014 CRISSY ADORNO MD 05/18/17 0013 interface
--- NOTE | ~2017-05-15 | CON ---
[place], [place] REPORT OF CONSULTATION NAME: JODI ROMERO UNIT #: [id number] ROOM: [place] [address] DOCTOR: LEXI MONTAÑO ED.D) BIRTHDATE: [birth year] DOS: 05/16/2017 HISTORY OF PRESENT ILLNESS: Jodi Romero is a 47-year-old female referred by the hospitalist for an evaluation following a suicide attempt. At the present time, this patient is in the intensive care unit at [facility]. The patient states that she is , but . She does have 3 children. She last worked at [employer] in [place], [place]. She states her physician is Dr. Scherer and her medical history is pertinent for vitamin D3 deficiency, opiate abuse, benzodiazepine abuse. Her medications include vitamin D3, hydroxyzine, diazepam, doxepin, Xanax, Elavil, Neurontin, trazodone and baclofen. This patient did have opiates in her urine drug screen. It was very difficult to communicate with her; she had just been extubated. She states that she follows with Dr. Webb for her psychiatric needs. She was treated in an inpatient psychiatric hospital one time, but she does not remember the name of the facility. She did know she was in [facility], but had no idea of the date. She stated that she thought it was 1968. She was clearly still remaining delirious from her drug overdose of tricyclic antidepressants and baclofen. She states she is not suicidal, but it will be very difficult to determine this at this point in time due to the fact she was very lethargic. She is under a pink slip here at the hospital and should remain under the pink slip until she is medically stable and can adequately deny she is not suicidal. If she is suicidal, she should be transferred to a psychiatric facility for inpatient care. DIAGNOSES: 1. Borderline personality disorder. 2. Major depressive disorder, recurrent. RECOMMENDATIONS: 1. The patient should remain under a pink slip. 2. When she is medically stable and not delirious, if she is not suicidal, she may be discharged home, but if she remains suicidal, she should be transferred to an inpatient psychiatric facility. I did discuss this with the hospitalist, Dr. Godoy. Thank you very much for this consult. LEXI MONTAÑO ED.D CM:CONSTR:REPORT OF CONSULTATION 1521 05/17/17 0423 interface ZANA GODOY DO
--- NOTE | ~2017-05-15 | EKG ---
[place], [place] ELECTROCARDIOGRAM REPORT NAME: SEMAJ ROMERO UNIT #: [id number] ROOM: [place] [address] DOCTOR: LETA ADORNO MD,CRISSY BIRTHDATE: [birth year] DOS: 05/15/2017 ELECTROCARDIOGRAM REPORT TIME: 0934 AM The rhythm was noted as normal sinus rhythm. Heart rate of 65 beats per minute. Prolonged QTC interval was noted in the patient, most likely drug induced as the patient has been noted currently. Acute drug overdose. There were no arrhythmias noted. CRISSY GILLETTE MD CM:EKGRPT:ELECTROCARDIOGRAM REPORT 1145 1433 CRISSY ADORNO MD
--- NOTE | ~2017-05-15 | PR ---
[place], [place] PROGRESS NOTE NAME: SEMAJ ROMERO UNIT #: [id number] ROOM: [place] [address] DOCTOR: CRISSY STRATTON MD BIRTHDATE: [birth year] DOS: 05/16/2017 Pulmonary critical care evaluation and management consultation requested by the Hospitalist Services. REASON FOR CONSULTATION: To assess the patient for acute drug overdose with respiratory failure. HISTORY OF PRESENT ILLNESS: The patient could not give me any history. Currently, the patient is sedated and noted on mechanical ventilator. All the history has been obtained for this patient by review of the current documentation, medical records of the patient by the physician and recent documentation of the patient's past and recent hospitalization. A 47-year-old white female who has been brought to the hospital by the EMS, as the patient was noted with possibly acute drug overdose. The patient was noted unresponsive with severe decreased respiratory rate of 6 breaths per minute. The patient was noted responsive to the painful stimuli and verbal stimuli at times, but noted sleeping inappropriately and not able to answer the questions appropriately. The patient possibly has taken unknown quantity of trazodone, possibly 7, and 10 of baclofen as well as amitriptyline 4 pills. The IV access tried for this patient was not noted successful. The patient brought to the hospital. The patient has been intubated and started on mechanical ventilation because of the acute respiratory failure related to drug overdose. The patient was started intravenous Diprivan. Later on, a few hours later, the Diprivan dose was decreased, she been noted with improvement in the mental status. She was also noted with agitated behavior as well and was started on intravenous Versed 5 mg q.1h. for sedation. The patient remains sedated overnight. This morning as the patient was seen, she was sedated at that time. The sedation was discontinued and about 15 minutes later, the patient was trying to get off the bed. She is able to understand the questions. The patient has been noted awake. She has been noted restrained. She has been asked for extubation and liberation from mechanical ventilator based on improvement in mental status and review of the other ongoing medical problems and physical examination and review of the labs. REVIEW OF SYSTEMS: Certainly cannot be completed at this time effectively with the patient's currently compromised respiratory status, on mechanical ventilation. PAST MEDICAL HISTORY: 1. The patient was noted with history of drug seeking behavior, history of depression, history and drug overdose. 2. Recent admission and signed against medical advice from the hospital yesterday. The patient stayed in the hospital about 3 days and admitted for the chest pain and also described as pneumonia. 3. History of peptic ulcer disease. 4. Vitamin D deficiency. 5. Generalized anxiety disorder. 6. Past history of deep venous thrombosis. [place], [place] PROGRESS NOTE NAME: SEMAJ ROMERO UNIT #: [id number] ROOM: [place] [address] DOCTOR: LETA ADORNO MD,CRISSY BIRTHDATE: [birth year] PAST SURGICAL HISTORY: Reported: 1. Hysterectomy. 2. Nephrectomy, details were unknown for reason of nephrectomy at the present time. 3. History of cholecystectomy. SOCIAL HISTORY: The patient reported history of tobacco use, quarter pack of cigarettes per day since age of 18 years. There was no history of illicit drug use or any alcohol use reported. FAMILY HISTORY: Reported, mother at 49 years old as she was murdered. The father's history was unknown. HOME MEDICATIONS: 1. Use of ProAir HFA inhaler. 2. Xanax 2 mg q.i.d. 3. Amitriptyline 25 mg at bedtime. 4. Baclofen 10 mg q.i.d. p.r.n. for muscle spasm. 5. Wellbutrin-XL 300 mg p.o. daily. 6. Vitamin D 2000 international units daily. 7. Diazepam 10 mg at bedtime. 8. Doxepin 25 mg at bedtime. 9. Neurontin 300 mg p.o. t.i.d. 10. Vistaril 25 mg daily. 11. Levaquin 750 mg daily. 12. Bactrim-DS 1 p.o. b.i.d. 13. Effexor XR 150 mg daily. 14. Geodon 80 mg at bedtime and other p.r.n. medications including use of a Vistaril. DRUG ALLERGIES: Reported allergy: 1. NONSTEROIDAL ANTI-INFLAMMATORY MEDICATIONS. 2. IODINE. 3. CODEINE PHOSPHATE. 4. HYDROXYZINE. 5. TORADOL. 6. IVP DYE. 7. ASPIRIN. PHYSICAL EXAMINATION: GENERAL: A 47-year-old female who has been currently intubated on mechanical ventilation. The patient is sedated previously and later noted to be awake, following vocal commands. VITAL SIGNS: Height of the patient is noted a 5 feet 3 inches, weight 178 pounds, BMI 31.5. Temperature was noted as normal 99.9 degrees Fahrenheit rectal temperature, respiratory rate 14-16, heart rate 83-61, blood pressure 130/76-154/86. The pulse oxygen saturation for the patient was noted as 100% on 35% oxygen this morning. HEENT: The patient is currently intubated, orogastric tube is in place. The [place], [place] PROGRESS NOTE NAME: SEMAJ ROMERO UNIT #: [id number] ROOM: [place] [address] DOCTOR: LETA ADORNO MD,CRISSY BIRTHDATE: [birth year] neck was supple. Head was atraumatic. CARDIOVASCULAR: S1, S2 audible. LUNGS: The patient was noted without any wheezing or crackles at this time. On examination, breath sounds are noted mild to moderately decreased bilaterally. ABDOMEN: Flat, soft, nontender. Bowel sounds present. EXTREMITIES: Does not show any edema, clubbing or cyanosis. PUBLIC ADDRESS SYSTEM INSTALLER: Central nervous, could be examined. The patient is able to move her upper and lower extremities ____. SKIN: No lesions or rashes. MUSCULOSKELETAL: No gross deformities visible. LABORATORY DATA: Urine drug screen on 05/15/2017 noted positive for benzodiazepine and opiates. CBC of the patient on 05/15/2017, hemoglobin 11.2, hematocrit 35.0, WBC count normal, platelet count was normal. PT and PTT yesterday on admission was normal. Lactic acid 1.2 on 05/15/2017. CMP of the patient on 05/15/2017, glucose 106. BUN was normal. Creatinine was normal. Sodium 146. AST for this patient was noted 170, ALT of 158. CK-MB and troponin were normal. Arterial blood gas of the patient on 35% oxygen, pH of 7.40, pCO2 of 34.8, pO2 113. CBC of the patient of 05/16/2017 shows hemoglobin 10.8, hematocrit 33.3, WBC count normal, platelet count was normal. PT and PTT for this patient was noted as normal. BMP of the patient this morning, BUN and creatinine were normal. Sodium 146. Arterial blood gas of the patient this morning, pH of 7.40, pCO2 of 33.5, pO2 107 on 35% oxygen assist control mode mechanical ventilation. The arterial blood gas that was done yesterday for this patient after intubation on mechanical ventilation, pH of 7.40, pCO2 of 34.8, pO2 119. Urine culture showed no bacterial growth. Review of the radiology data for this patient, the chest x-ray that was done for this patient, 1 view, shows endotracheal tube was noted about 3 cm above the akiko level. Small area of atelectasis noted left lower lobe ____ in right lower lobe. CT scan of the head for the patient that was done 05/15/2017 was reported as no acute abnormalities. IMPRESSION: 1. Polymicrobial drug overdose related to use of amitriptyline, trazodone as well as possibly muscle relaxant. Electrocardiogram of this patient shows QTC prolongation on admission. 2. The patient with atelectasis of left lower lobe, less likely to be pneumonia. 3. Recent hospitalization and signed against medical advice. 4. Multiple psychiatric problems which has been noted on several medications for anxiety and depression was also known. PLAN OF TREATMENT: At this time, the patient will be liberated from mechanical ventilator, agitation will be managed with use of the medication such as Ativan and others if necessary. Monitoring QTC prolongation. Condition of the patient if necessary to be managed with recommendation as given by the poison control as well. The patient has been started on three different antibiotics, which would be all discontinued. At this time, the patient will be given only Rocephin, as signs of infection or pneumonia is very likely at the present time, which requires treatment right at this minute. In case if the patient develops any [place], [place] PROGRESS NOTE NAME: SEMAJ ROMERO [facility]: [id number] UNIT #: [id number] ROOM: [place] [address] DOCTOR: LETA ADORNO MD,[facility] BIRTHDATE: [birth year] further signs of infection and/or pneumonia, antibiotic will be broadened as necessary. Other supportive therapy, plan and management, and DVT prophylaxis will be continued. Other additional treatment changes to be done based on progression of the illness. Usual care. Psychiatric consultation will be necessary. The patient will require psychiatry management to prevent drug overdose in future as well. Adjustment in medication needs to be done as well. Total time pulmonary critical care evaluation and management was 35 minutes. CRISSY GILLETTE MD CM:PNTRANS [id number] CRISSY ADORNO MD 05/17/17 0329 interface
[~2017-05-15 09:15] MED LIST changes: -BACLOFEN 10 MG TABLE PO; -BUPROPION HCL300 MG PO; -LEVAQUIN750 M1 PO; -LEVOFLOXACIN750 M2 PO; -NORVASC2.5 MG PO; -ONDANSETRON HYDR4 MG PO; -PERCOCET 10-321 EACH PO; -PHENERGAN25 M3 PO; -PROAIR HFA8.5 GM INH; -SEPTDS PO; -TRAZODONE50 MG PO; -VENLAFAXINE HY150 M2 PO
--- NOTE | 2017-05-15 09:30 | NUR ---
SEVERAL UNSUCCESSFUL ATTEMPTS AT IV ACCESS BY ER NURSES. TO PLACE CENTRAL LINE.
[2017-05-15 09:55] LABS: BILIRUBIN NEGATIVE (NEGATIVE); BLOOD 1+ (NEGATIVE); CLARITY CLEAR (CLEAR); COLOR YELLOW (YELLOW); GLUCOSE NEGATIVE (NEGATIVE); KETONE NEGATIVE (NEGATIVE); LEUKO ESTERASE NEGATIVE (NEGATIVE); NITRITE NEGATIVE (NEGATIVE); UROBILINOGEN 0.2 E.U./dl (0.2-1.0)
[2017-05-15 10:01] LABS: URINE AMPHETAMINES < 1000 (1000ng/ml); URINE BARBITURATES < 200 (200ng/ml); URINE BENZODIAZEPINES > 200 (200ng/ml); URINE CANNABINOIDS (THC) < 50 (50ng/ml); URINE COCAINE < 300 (300ng/ml); URINE METHADONE < 300 (300ng/ml); URINE OPIATES > 300 (300ng/ml)
--- NOTE | 2017-05-15 10:02 | NUR ---
DR FRIEDMAN IN PATIENT ROOM ATTEMPTING CENTRAL LINE AT THIS TIME.
[2017-05-15 10:03] LABS: URINE PHENCYCLIDINE < 25 (25ng/ml)
[2017-05-15 10:11] LABS: MUCOUS TRACE; WBC 0-2 wbc/hpf (0-5)
--- NOTE | 2017-05-15 10:30 | NUR ---
RSI KIT HAS BEEN PULLED FOR PATIENT FOR POSSIBLE INTUBATION.
--- NOTE | 2017-05-15 10:42 | NUR ---
DR WRIGHT IN PATIENT ROOM AT THIS TIME ATTEMPTING CENTRAL LINE.
--- NOTE | 2017-05-15 11:02 | NUR ---
PATIENT CENTRAL CATHETER HAS BEEN PLACED. BLOOD DRAWN BY THIS NURSE AND GIVEN TO BUTCHER OR SMALLGOODS MAKER AT THIS TIME.
--- NOTE | 2017-05-15 11:04 | NUR ---
POISON CONTROL HAS BEEN CALLED. SPOKE WITH "VILMA". STATES TO WACH PATIENTS QRS AND RECHECK EKG IN ABOUT 3-4 HOURS. STATES THAT PATIENT WILL BE SLEEPY. DR FRIEDMAN NOTIFIED.
--- NOTE | 2017-05-15 11:11 | NUR ---
DR WRIGHT IN FAMILY ROOM WITH FAMILY AT THIS TIME.
[2017-05-15 11:14] LABS: BASO % 0.3 % (0.0-1.0); EOS # 0.2 10*3/uL (0.0-0.4); EOS % 2.2 % (1.0-4.0); HEMOGLOBIN 11.2 g/dl (12.0-16.0); LYMPH # 1.8 10*3/uL (1.3-4.4); LYMPH % 25.3 % (27.0-41.0); MEAN CELL VOLUME 101.7 fl (81.0-99.0); MEAN CORPUSCULAR HGB 32.6 pg (27.0-31.0); MEAN PLATELET VOLUME 11.1 fl (9.6-12.3); MONO # 0.5 10*3/uL (0.1-1.0); MONO % 7.1 % (3.0-9.0); NEUT # 4.7 10*3/uL (2.3-7.9); NEUT % 64.8 % (47.0-73.0); PLATELET COUNT AUTOMATED 211 10*3/uL (130-400); RED BLOOD COUNT 3.44 10*6/uL (4.10-5.10); RED CELL DISTRI WIDTH 15.2 % (0-14.5); WHITE BLOOD COUNT 7.2 10*3/uL (4.8-10.8)
[2017-05-15 11:24] LABS: ACT PARTIAL THROMBO TIME 25.1 SECONDS (20.8-31.5)
[2017-05-15 11:31] LABS: ALBUMIN 3.1 gm/dl (3.1-4.5); ALKALINE PHOSPHATASE 158 U/L (45-117); BUN 21 mg/dl (7-24); CHLORIDE 112 mmol/L (98-107); CKMB 1.4 ng/ml (0.5-3.6); CPK 82 U/L (26-192); CREATININE 0.91 mg/dL (0.55-1.02); POTASSIUM 4.9 mmol/L (3.5-5.1); SGOT/AST 31 IU/L (3-35); SGPT/ALT 107 U/L (12-78); SODIUM 146 mmol/L (136-145); TOTAL PROTEIN 7.1 gm/dL (6.4-8.2)
[2017-05-15 11:32] LABS: B-hCG (QUALITATIVE) NEGATIVE (NEGATIVE)
--- NOTE | 2017-05-15 11:37 | NUR ---
PATIENT INTUBATED AT THIS TIME BY DR WRIGHT. PATIENT INTUBATED WITH 7.5 ET AT 23 AT THE LIP.
[2017-05-15 11:38] LABS: ACETAMINOPHEN (TYLENOL) < 2.0 ug/ml (10-30); TROPONIN I < 0.015 ng/ml (<0.045)
--- NOTE | 2017-05-15 11:38 | NUR ---
PATIENT TOLERATED INTUBATION WELL. PATIENT HAS GOOD SKIN COLOR PINK COOL DRY. OXYGEN STAT STAYED AT 100% THE ENTIRE TIME DURING INTUBATION.
[2017-05-15 11:39] LABS: ETHYL ALCOHOL < 3.0 mg/dl (<3)
--- NOTE | 2017-05-15 11:51 | NUR ---
PATIENT GIVEN 50MG PROPOFOL BOLUS AT THE TIME PER DR WRIGHT VERBAL ORDER.
--- NOTE | 2017-05-15 12:00 | NUR ---
PATIENT NG TUBE PLACED BY [facility] STUDENT NURSE AND LEVI ERNST.
--- NOTE | 2017-05-15 13:00 | NUR ---
A 47, admitted to [facility], under the services of ZANA Karimi DO with a diagnosis of Drug overdose, respiratory failure. Chief complaint is drug overdose, intubated in ER. Patient arrived via stretcher from ER. Monitor applied. Initial assessment completed. Vital signs taken and recorded. See assessment for past medical history, medications and allergies. Patient and/or family oriented to unit. [facility] visitation policy reviewed. Clothing/patient valuable form completed. Patient arrived, orally intubated, sedated on Propafol drip but still restless. See all appropriate interventions. ROSELYN WHITTAKER L
[2017-05-15 13:20] LABS: ABG BASE EXCESS -2.2 mmol/L (-2.0-2.0); ABG HCO3 22.2 mmol/l (22-26); ABG O2 SATURATION 98.5 % (95-97); ARTERIAL BLOOD GAS PCO2 34.8 mmHg (35-45); ARTERIAL BLOOD GAS PH 7.407 (7.35-7.45)
--- NOTE | 2017-05-15 13:43 | NUR ---
BELONGINGS BAG SENT TO [facility]U WITHQueenie SOLITARIO RN AT THIS TIME. PATIENT ALSO HAS A PENDANT AND CHAIN FOR NECKLACE. IT IS ALL IN [facility] WITH PATIENT AT THIS TIME.
--- NOTE | 2017-05-15 13:43 | NUR ---
DR. GILLETTE NOTIFIED OF CONSULT.
--- NOTE | 2017-05-15 15:08 | NUR ---
GRETA DOLL NOTIFIED OF CONSULT.
[2017-05-15] MEDS ORDERED: PHENERGAN25 M3 PO (15:32)
[2017-05-15] MEDS ORDERED: BACLOFEN 10 MG TABLE PO (15:33)
[2017-05-15] MEDS ORDERED: PROAIR HFA8.5 GM INH (15:34)
[2017-05-15] MEDS ORDERED: TRAZODONE50 MG PO (15:34)
[2017-05-15] MEDS ORDERED: LEVOFLOXACIN750 M2 PO (15:35)
[2017-05-15] MEDS ORDERED: SEPTDS PO (15:36)
[2017-05-15] MEDS ORDERED: PERCOCET 10-321 EACH PO (15:37)
[2017-05-15] MEDS ORDERED: BUPROPION HCL300 MG PO (15:37)
[2017-05-15] MEDS ORDERED: ZIPRASIDONE HCL80 M1 PO (15:38)
[2017-05-15] MEDS ORDERED: VENLAFAXINE HY150 M2 PO (15:38)
[2017-05-15] MEDS ORDERED: ONDANSETRON HYDR4 MG PO (15:39)
--- NOTE | 2017-05-15 15:59 | NUR ---
POISON CONTROL CALLED. REVIEWED PT'S QT AND QTC. THEY RECOMMEND A MAG RUN AND REPEAT EKG [address] BENITES NOTIFIED. PT REMAINS ORALLY INTUBATED, ON PROPOFOL DRIP AT 45MCG/KG/MIN. TEMP STILL 93 RECTALLY, BEAR HUGGER IN PLACE. SOFT RESTRAINTS IN PLACE WITH ADEQUATE CIRCULATION. MOON PATENT YELLOW URINE. SEE ALL APPROPRIATE INTERVENTIONS.
--- NOTE | 2017-05-15 17:35 | NUR ---
MAG RUN COMPLETED.
--- NOTE | 2017-05-15 20:20 | NUR ---
1945 RESTING IN BED WITH HOB ELEVATED. SIDE RAILS UP X'S 2. BED IN ROTATION MODE. NPO. ORAL AND EYE CARE DONE. OGT INTACT AND CLAMPED. PLACEMENT CONFIRMED WITH AIR BOLUS/AUSCULTATION. RIJ MLC INTACT. DIPRIVAN GTT CONT FOR SEDATION. PULSE OX 96% ON 35% FIO2 VIA VENT. SUCTIONED. SEE INTERVENTION SCREEN. MOON PATENT AND DRAINING CLEAR YELLOW URINE. WRIST RESTRAINTS INTACT BILATERALLY. CIRCULATION ADEQUATE.
--- NOTE | 2017-05-15 21:22 | NUR ---
2109 RESLTESS AND TRYING TO SIT UP IN BED. 2111 MEDICATED WITH VERSED 5NG IV FOR RESTLESSNESS AND AGITATION. IMMEDIATELY EFFECTIVE.
--- NOTE | 2017-05-15 23:46 | NUR ---
POISON CONTROL CALLED IN AND UPDATED ON PT CONDITION. DR. SCHAEFER CALLED AND EKG ORDERED FOR AM.
[2017-05-16] VITALS (8 sets, daily range): BP systolic 112–156; BP diastolic 72–109
--- NOTE | 2017-05-16 02:22 | NUR ---
REMAINS ADEQUATELY SEDATED ON DIPRIVAN GTT. PULSE OX 99% ON 35% FIO2.
[2017-05-16 04:45] LABS: BASO % 0.2 % (0.0-1.0); EOS # 0.5 10*3/uL (0.0-0.4); HEMATOCRIT 33.3 % (37.0-47.0); HEMOGLOBIN 10.8 g/dl (12.0-16.0); LYMPH # 1.6 10*3/uL (1.3-4.4); LYMPH % 16.7 % (27.0-41.0); MEAN CELL VOLUME 100.9 fl (81.0-99.0); MEAN CORPUSCULAR HGB 32.7 pg (27.0-31.0); MEAN CORPUSCULAR HGB CONC 32.4 g/dl (33.0-37.0); MEAN PLATELET VOLUME 11.1 fl (9.6-12.3); MONO # 0.6 10*3/uL (0.1-1.0); MONO % 5.9 % (3.0-9.0); NEUT # 6.8 10*3/uL (2.3-7.9); NEUT % 71.9 % (47.0-73.0); PLATELET COUNT AUTOMATED 221 10*3/uL (130-400); RED CELL DISTRI WIDTH 15.2 % (0-14.5); WHITE BLOOD COUNT 9.4 10*3/uL (4.8-10.8)
[2017-05-16 05:00] LABS: ACT PARTIAL THROMBO TIME 24.5 SECONDS (20.8-31.5)
[2017-05-16 05:11] LABS: BUN 15 mg/dl (7-24); CHLORIDE 114 mmol/L (98-107); CREATININE 1.01 mg/dL (0.55-1.02); MAGNESIUM 1.9 mg/dL (1.5-2.1); PHOSPHOROUS 3.5 mg/dL (2.5-4.9); SODIUM 146 mmol/L (136-145)
[2017-05-16 05:59] LABS: ABG BASE EXCESS -3.3 mmol/L (-2.0-2.0); ABG HCO3 20.5 mmol/l (22-26); ABG O2 SATURATION 97.8 % (95-97); ARTERIAL BLOOD GAS PCO2 33.1 mmHg (35-45); ARTERIAL BLOOD GAS PH 7.405 (7.35-7.45)
--- NOTE | 2017-05-16 06:06 | NUR ---
RESTING IN BED WITHOUT DISTRESS. BED REMAINS IN ROTATION MODE. HOB ELEVATED. ET SECURE TO VENT. PULSE OX 100% ON 35% FIO2. NPO CONT. OGT REMAINS INTACT AND CLAMPED. WRIST RESTRAINTS INTACT BILATERALLY. CIRCULATION ADEQUATE. MOON PATENT. IV FLUIDS CONT. DEIPRIVA GTT MAINTAINED FOR SEDATION. CONDITION GUARDED.
--- NOTE | 2017-05-16 09:08 | NUR ---
client is still intubated, unable to evaluate.
--- NOTE | 2017-05-16 09:43 | NUR ---
PT WAS EXTUBATED AT 0943. PT SPO2 99% ON 2L/M, HR 99, RR 20
--- NOTE | 2017-05-16 09:45 | NUR ---
EXTUBATED AND PLACED ON NASAL CANNULA 2L. CRYING "I HURT." "I CAN'T BREATHE."
--- NOTE | 2017-05-16 10:02 | NUR ---
DR. MONTAÑO NOTIFIED OF CONSULT.
--- NOTE | 2017-05-16 12:00 | NUR ---
DR. MONTAÑO HERE TO SEE PATIENT. STATES TO MAINTAIN PINK SLIP.
--- NOTE | 2017-05-16 13:13 | NUR ---
SPOKE WITH GRETA DOLL WHO WILL BE HERE AFTER 4PM TODAY. PATIENT IS MUCH MORE CALM WITH BOYFRIEND AT BEDSIDE.
--- NOTE | 2017-05-16 13:41 | NUR ---
met with client who is known to me, to assess for suicidal ideation and risk, client first told me she was having pain and took pills, then she said she wanted to be with her mom beatriz, who i knew, we talked about that loss, client was very upset and said she does not want to be sent anywhere, i explained to her that since she overdosed that we could send her to a psyh unit and i wanted to see if she would willingly go to a psych unit in [facility] as she is a resident there, she told me no, she will not go there willingly. given this and the risk that she may change her mind enroute to [facility], i cannot send her against her will there , i will have to get [facility] to evaluate for [facility] as [place] of [place]out of [place]., i cannot have them come until she is medically stable. i asked the nurse to let me know when that is and i will proceed, we will need to go to probate court as well.
--- NOTE | 2017-05-16 20:58 | NUR ---
PT STATES RELIEF OF PAIN WITH EARLIER TYLENOL.
--- NOTE | 2017-05-16 21:07 | NUR ---
SPOKE WITH DR SCHAEFER R/T PT'S REQUEST TO D/C MOON CATH. ORDER RECEIVED TO D/C MOON. MOON D/C'D INTACT. PT TOLERATED PROCEDURE WELL.
[2017-05-17] VITALS: BP 151/95
[2017-05-17 04:00] VITALS: BP 165/101
--- NOTE | 2017-05-17 04:11 | NUR ---
CALLED DOCTOR MITTAL WITH PATIENTS BP OF 165/101. I INFORMED HIM THAT PATINETS STATED SHE WAS ANXIOUS AND THAT THE PATIENT HAS NOT SLEPT TONIGHT. HE SAID OK HE WOULD PUT SOMETHING IN.
[2017-05-17 05:55] LABS: ALBUMIN 2.7 gm/dl (3.1-4.5); ALKALINE PHOSPHATASE 129 U/L (45-117); BUN 11 mg/dl (7-24); CHLORIDE 110 mmol/L (98-107); CREATININE 0.88 mg/dL (0.55-1.02); SGOT/AST 25 IU/L (3-35); SGPT/ALT 71 U/L (12-78); SODIUM 144 mmol/L (136-145); TOTAL PROTEIN 6.3 gm/dL (6.4-8.2)
[2017-05-17 06:01] LABS: BASO % 0.4 % (0.0-1.0); EOS # 0.3 10*3/uL (0.0-0.4); HEMATOCRIT 30.3 % (37.0-47.0); HEMOGLOBIN 9.9 g/dl (12.0-16.0); LYMPH # 2.7 10*3/uL (1.3-4.4); LYMPH % 37.7 % (27.0-41.0); MEAN CELL VOLUME 100.7 fl (81.0-99.0); MEAN CORPUSCULAR HGB 32.9 pg (27.0-31.0); MEAN CORPUSCULAR HGB CONC 32.7 g/dl (33.0-37.0); MEAN PLATELET VOLUME 11.5 fl (9.6-12.3); MONO # 0.7 10*3/uL (0.1-1.0); MONO % 9.9 % (3.0-9.0); NEUT # 3.5 10*3/uL (2.3-7.9); NEUT % 47.9 % (47.0-73.0); PLATELET COUNT AUTOMATED 196 10*3/uL (130-400); RED BLOOD COUNT 3.01 10*6/uL (4.10-5.10); RED CELL DISTRI WIDTH 14.8 % (0-14.5); WHITE BLOOD COUNT 7.2 10*3/uL (4.8-10.8)
--- NOTE | 2017-05-17 06:15 | NUR ---
PATIENT STATED THIS MORNING THAT SHE WILL NEVER TRY AND KILL HERSELF AGAIN. PATIENT STATED THAT SHE IS NOT SUICIDAL . PATIENT ATE A TURKEY SANDWICH THIS MORNING.
[2017-05-17 06:19] VITALS: BP 143/89
--- NOTE | 2017-05-17 06:39 | NUR ---
CALLED DOCTOR KYRIE AFTER PATIENT SAID TO ME THAT SHE DOES NOT WANT DOCTOR SHUN HER DOCTOR SHE DOES NOT EVEN WANT HIM IN HER ROOM. HE SAID OK HE WOULD APSS IT ALONG.
--- NOTE | 2017-05-17 08:00 | NUR ---
RESTING IN BED. DENIES ANY SUICIDAL THOUGHTS OR PLAN AT THIS TIME. BP 161/95. ANXIOUS. WANTS TO GO HOME. AFEBRILE. PULSE OX 99% ON ROOM AIR.
[2017-05-17] MEDS ORDERED: NORVASC2.5 MG PO (08:40)
[2017-05-17] MEDS ORDERED: LEVAQUIN750 M1 PO (08:41)
--- NOTE | 2017-05-17 10:12 | NUR ---
Nutritional Support Services Note: Pts appetite is improving. Regular diet as ordered apporpriate. No nutrition intervention needed at this time. Will follow as needed. Brenda Jo
--- NOTE | 2017-05-17 10:37 | NUR ---
Discharge instructions reviewed with patient/family. Patient receptive and verbalizes understanding. Follow-up care arranged. Written instructions given to patient/family. [facility]
== END 2017-05-17 10:37 | disposition home or self-care (01) | DRG 917 ==
LOC: ED 09:15 → EDHOLD 11:17 → ICCU 11:17
PROVIDERS: Family Medicine; Family Medicine Adult Medicine; Internal Medicine; Internal Medicine Critical Care Medicine; ADMIT Internal Medicine
PROC: 0BH17EZ Insertion of Endotracheal Airway into Trachea, Via Natural or Artificial Opening (ICD-10-PCS; principal; 2017-05-15)
PROC: 5A1935Z Respiratory Ventilation, Less than 24 Consecutive Hours (ICD-10-PCS; principal; 2017-05-15)
DX: T43.012A Poisoning by tricyclic antidepressants, intentional self-harm, initial encounter (principal); G93.40 Encephalopathy, unspecified; J18.9 Pneumonia, unspecified organism; T68.XXXA Hypothermia, initial encounter; E87.0 Hyperosmolality and hypernatremia; F33.2 Major depressive disorder, recurrent severe without psychotic features; T88.4XXA Failed or difficult intubation, initial encounter; J39.8 Other specified diseases of upper respiratory tract; D53.9 Nutritional anemia, unspecified; E87.8 Other disorders of electrolyte and fluid balance, not elsewhere classified; R73.9 Hyperglycemia, unspecified; R89.7 Abnormal histological findings in specimens from other organs, systems and tissues; R74.0 Nonspecific elevation of levels of transaminase and lactic acid dehydrogenase [LDH]; N30.11 Interstitial cystitis (chronic) with hematuria; F11.90 Opioid use, unspecified, uncomplicated; G89.4 Chronic pain syndrome; F17.210 Nicotine dependence, cigarettes, uncomplicated; F41.1 Generalized anxiety disorder; R10.9 Unspecified abdominal pain; G89.29 Other chronic pain; I10 Essential (primary) hypertension; T48.202A Poisoning by unspecified drugs acting on muscles, intentional self-harm, initial encounter; E55.9 Vitamin D deficiency, unspecified

== ENCOUNTER 2017-06-21 07:53 | Emergency (ER) | payer OTHER ==
[~2017-06-21] VITALS: Ht 160 cm; Wt 68.0 kg
[~2017-06-21 07:53] MED LIST changes: +BACLOFEN 10 MG TABLE PO; +BUPROPION HCL300 MG PO; +LEVAQUIN750 M1 PO; +LEVOFLOXACIN750 M2 PO; +NORVASC2.5 MG PO; +ONDANSETRON HYDR4 MG PO; +PERCOCET 10-321 EACH PO; +PHENERGAN25 M3 PO; +PROAIR HFA8.5 GM INH; +SEPTDS PO; +TRAZODONE50 MG PO; +VENLAFAXINE HY150 M2 PO
[2017-06-21 08:03] VITALS: BP 114/70
[2017-06-21] MEDS ORDERED: AMOXICILLIN500 M2 PO (08:22)
[2017-06-21] MEDS ORDERED: CLINDAMYCIN HC300 MG PO (08:22)
[2017-06-21] MEDS ORDERED: Fioricet 325 MG1 TAB PO (08:22)
== END 2017-06-21 08:43 | disposition home or self-care (01) ==
LOC: ED 07:53
DX: K08.89 Other specified disorders of teeth and supporting structures (principal); F17.200 Nicotine dependence, unspecified, uncomplicated; G89.4 Chronic pain syndrome; K21.9 Gastro-esophageal reflux disease without esophagitis; E78.00 Pure hypercholesterolemia, unspecified; Z87.11 Personal history of peptic ulcer disease; Z90.710 Acquired absence of both cervix and uterus; Z90.49 Acquired absence of other specified parts of digestive tract; Z86.718 Personal history of other venous thrombosis and embolism; Z79.899 Other long term (current) drug therapy; Z88.6 Allergy status to analgesic agent; Z88.5 Allergy status to narcotic agent; Z91.041 Radiographic dye allergy status